=== PATIENT | male | born 1965 | race Caucasian/White ===

== ENCOUNTER 2017-12-12 13:41 | Emergency (ER) | payer BC, OTHER ==
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
--- NOTE | 2017-12-12 14:36 | CT ---
Head CT Technique: Multiple axial sections through the brain were obtained. Intravenous contrast was not utilized. Comparison: No previous intracranial imaging. Findings: Ventricles along with basal cisterns and sulci over the convexities are within normal limits for the patient's age. No abnormal parenchymal densities are seen. No evidence of intracranial hemorrhage. No midline shift or mass effect is seen. Bone window settings were reviewed which show no acute calvarial abnormality. Mild mucosal thickening is seen within the right side of the sphenoid sinus. Impression: 1. Mucosal thickening within the right side of the sphenoid sinus which is likely incidental. 2. No acute intracranial abnormality is identified. No acute skull fracture is seen. Diagnostic code #2
== END 2017-12-12 15:25 | disposition home or self-care (01) ==
LOC: JD.ED 13:41
DX: R51 Headache (principal); V89.2XXA Person injured in unspecified motor-vehicle accident, traffic, initial encounter
CPT/HCPCS: 70450; 70450-26; 99283; 99284-25